=== PATIENT | female | born 1990 | race Caucasian/White ===

== ENCOUNTER 2016-11-11 11:44 | Emergency (ER) | payer MEDICAID ==
[2016-11-11 12:03] VITALS: BP 131/71
--- NOTE | 2016-11-11 12:14 | Emergency Department Report ---
Chief Complaint: Chest Pain Stated Complaint: CP Time Seen by Provider: 11/11/16 12:08 - HPI History of Present Illness: 26-year-old female recently moved here comes in for complaint of left breasts discharge as well as left chest pain. Patient did make an attempt to go to an urgent care and they referred her to the emergency room. She reports that the discharge is clear but cloudy at times. She denies any breast-feeding. She does complain although the left axilla there is some tenderness and soreness. - Exam Vital Signs: Vital Signs 11/11/16 11:59 Temperature 98.6 F Pulse Rate 65 Respiratory 16 Rate Blood Pressure 131/71 O2 Sat by Pulse 100 Oximetry Physical Exam: Patient alert and oriented 3 no acute distress. Cardiovascular S1-S2 regular rate and rhythm respiratory clear to auscultation bilateral. No chest tenderness on palpation MSE screening note: Focused history and physical exam performed. Due to findings the following was ordered: Patient's been evaluated with provider and SE. Patient be evaluated in fast track. ED Disposition for MSE Condition: Stable
--- NOTE | 2016-11-11 14:21 | Emergency Department Report ---
ED Chest Pain HPI - General Chief Complaint: Chest Pain Stated Complaint: CP Time Seen by Provider: 11/11/16 12:08 Source: patient Mode of arrival: Ambulatory Limitations: No Limitations - History of Present Illness Initial Comments: Patient presents with left breast pain that radiates to her axial left axilla. She also noticed nipple discharge 2 days ago. The chest pain is reproducible and worse with movement. Dizziness, nausea, vomiting, fever, abdominal pain. She did state that she has been under increased stress recently and she denies family cardiac history. -: Sudden Pain Location: other (left breast) Pain Radiation: other (left axilla) Severity: severe Severity scale (0 -10): 10 Consistency: constant Improves With: nothing Worsens With: palpation re: denies: nausea, vomting, diaphoresis, dyspnea Treatments Prior to Arrival: none - Related Data Previous Rx's Medication Instructions Recorded Last Taken Type Ibuprofen [Motrin 800 MG tab] 800 mg PO BID PRN #14 tablet 11/11/16 Unknown Rx Allergies Allergy/AdvReac Type Severity Reaction Status Date / Time No Known Allergies Allergy Unverified 11/11/16 12:03 BOB score - Bob Score Age > 65: (0) No Aspirin use within the Past 7 Days: (0) No 3 or more CAD Risk Factors: (0) No 2 or more Angina events in past 24 hrs: (0) No Known CAD with more than 50% Stenosis: (0) No Elevated Cardiac Markers: (0) No ST Deviation Greater than 0.5mm: (0) No (no markers or ekg done due to this is reproducible breast pain, not true chest pain) BOB Score: 0 ED Review of Systems ROS: Stated complaint: CP Other details as noted in HPI Constitutional: denies: chills, fever Respiratory: denies: cough, shortness of breath, wheezing Cardiovascular: denies: chest pain, palpitations Gastrointestinal: denies: abdominal pain, nausea, diarrhea Genitourinary: other (left breast pain) Musculoskeletal: as per HPI Skin: denies: rash, lesions Neurological: denies: headache, weakness, paresthesias Psychiatric: denies: anxiety, depression ED Past Medical Hx - Social History Smoking Status: Never Smoker Substance Use Type: None - Medications Home Medications: Home Medications Medication Instructions Recorded Confirmed Last Taken Type Ibuprofen [Motrin 800 MG tab] 800 mg PO BID PRN #14 tablet 11/11/16 Unknown Rx ED Physical Exam - General Limitations: No Limitations General appearance: alert, in no apparent distress - Head Head exam: Present: atraumatic, normocephalic - Eye Eye exam: Present: normal appearance - Neck Neck exam: Present: normal inspection, full ROM - Respiratory Respiratory exam: Present: normal lung sounds bilaterally. Absent: respiratory distress - Cardiovascular Cardiovascular Exam: Present: regular rate, normal rhythm. Absent: systolic murmur, diastolic murmur, rubs, gallop - GI/Abdominal GI/Abdominal exam: Present: soft, normal bowel sounds - Back Exam Back exam: Present: normal inspection - Neurological Exam Neurological exam: Present: alert, oriented X3 - Psychiatric Psychiatric exam: Present: normal affect, normal mood - Skin Skin exam: Present: warm, dry, intact, normal color. Absent: rash - Other Other exam information: Bilateral fibrous breast tissue. Unable to express nipple discharge in left breast. Redness, swelling, tenderness to palpation in left upper quadrant and axilla. ED Course Vital Signs 11/11/16 11:59 Temperature 98.6 F Pulse Rate 65 Respiratory 16 Rate Blood Pressure 131/71 O2 Sat by Pulse 100 Oximetry ED Medical Decision Making - Medical Decision Making Patient presents with left breast pain and discharge. I will recommend her to [facility] outpatient clinic for possible mammogram and ultrasound of the left breast. I will also give her ibuprofen 800 mg twice a day. - Differential Diagnosis mastitis, fibroids Critical Care Time: No Critical care attestation.: If time is entered above; I have spent that time in minutes in the direct care of this critically ill patient, excluding procedure time. ED Disposition Clinical Impression: Breast discharge, Breast pain, left, Fibrous breast lumps Disposition: DISCHARGED TO HOME OR SELFCARE Is pt being admited?: No Does the pt Need Aspirin: No Condition: Stable Instructions: Chest Pain (ED), Breast Self-exam (ED), Mammogram (ED) Prescriptions: Ibuprofen [Motrin 800 MG tab] 800 mg PO BID PRN #14 tablet PRN Reason: Pain Referrals: LETI FIELDS MD [Primary Care Provider] - 3-5 Days [facility] [Outside] - 3-5 Days Forms: Work/School Release Form(ED) Time of Disposition: 14:24
== END 2016-11-11 14:50 | disposition home or self-care (01) ==
LOC: ED 11:44
DX: N63 Unspecified lump in breast (principal); N64.4 Mastodynia; N64.52 Nipple discharge
CPT/HCPCS: 93005; 93010; 99282